=== PATIENT | female | born 1990 | race African-American/Black ===

== ENCOUNTER 2023-11-07 10:40 | Emergency (ER) | payer OTHER, SELFPAY ==
[2023-11-07 10:44] VITALS: BP 187/122
[2023-11-07 11:47] VITALS: BP 167/116
--- NOTE | 2023-11-07 11:51 | ED.GENMED ---
History of Present Illness
General
Chief Complaint: Back Pain
Source: patient
Exam Limitations: none
Time Seen by Provider: 11/07/23 11:06
Nursing documentation reviewed up to this point in time: agreed with
History of Present Illness
History of Present Illness:
Patient is a 33-year-old female who presents to the ER for evaluation. She reports she was applying to her job at an [employer] and decided to come to the ER for evaluation of back pain and wanted to get her bp checked. She reports she has
had back pain for 4 months. 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 She denies any injury but reports when she lifts at work or bends over it worsens her pain. She has been taking Tylenol. She denies any
injury. She denies any radiation of pain. She denies any urinary frequency urgency or dysuria. Denies any fever or chills. Denies any bowel or bladder incontinence denies any numbness tingling weakness
In addition she wanted to get her blood pressure checked because at work yesterday her blood pressure was high. It was taken by a nurse. She denies any headache she denies any blurry vision chest pain shortness of breath nausea vomiting. She
reports she has had high blood pressure since her child was born and she is now 2. She has a family doctor has not been able to get a hold of them and has never had this evaluated or been prescribed medication.
During my exam patient however reports she needs to leave now because she needs to pickers material handlers her daughter.
Review of Systems
Review of Systems
Allergies reviewed?: Yes
All Other Systems: ROS reviewed and negative except as documented in HPI and ROS
Constitutional: Reports no symptoms; Denies fever
EENT: Reports other (No visual complaints)
Respiratory: Reports no symptoms; Denies cough or trouble breathing
Cardiac: Reports no symptoms
ABD/GI: Reports no symptoms
: Reports no symptoms; Denies flank pain, urgency or discharge
Musculoskeletal: Reports back pain (Low back pain)
Skin: Reports no symptoms
Neurological: Reports no symptoms; Denies dizzy or headache
Hematologic/Lymphatic: Reports no symptoms
Psychiatric: Reports no symptoms
Phy Exam
General Physical Exam
General Presentation: no apparent distress
General age: appears stated age
General Skin: warm and dry
General Mental: alert
General Hydration: appears well hydrated
Eye Exam
Eye Exam: PERRL and EOMI
Eye Exam General: PERRL: bilateral and EOM intact: bilateral
Pupil Exam: Bilateral: round and reactive
Cardiovascular Exam
Cardiovascular Exam: regular rate/rhythm, no edema, no murmur and normal peripheral pulses
Pulmonary Exam
Pulmonary Exam: lungs clear and no respiratory distress
Neurological Exam
Neurological Exam: alert, oriented x3, no motor deficits, no sensory deficits and other (Negative straight leg raise bilaterally; normal dorsiflexion plantarflexion normal distal sensation bilaterally)
Musculoskeletal Exam
Musculoskeletal Exam: full ROM and other (Normal inspection to back, mild tenderness to bilateral paralumbar region full range of motion)
Skin Exam
Skin Exam: normal color and warm/dry
Psychiatric Exam
Psychiatric Exam: normal mood/affect
Course
Vital Signs
Initial and Last Documented VS:
Initial Vital Signs
Temp Pulse Resp BP Pulse Ox
98.9 F 84 16 187/122 98
11/07/23 10:44 11/07/23 10:44 11/07/23 10:44 11/07/23 10:44 11/07/23 10:44
Last Documented Vital Signs
Temp Pulse Resp BP Pulse Ox
98.9 F 84 16 167/116 98
11/07/23 10:44 11/07/23 10:44 11/07/23 10:44 11/07/23 11:47 11/07/23 10:44
MDM/Problems Addressed
Differential Diagnosis Includes:
Not limited to lumbar sprain strain elevated blood pressure
MDM/Problems Addressed:
Patient is a 33-year-old female who presented to the ER. She was applying for a position at [employer] here at [place] and decided to come to the ER for evaluation of back pain and wanted to get her blood pressure checked. She reports
her blood pressure was taken at work yesterday and it was high. She however does report that has been high for the past 4 years since delivering her daughter who is now 4. She has no complaints associated with elevated blood pressure denies any
headache blurry vision chest pain shortness of breath. She is in no acute distress and reports that she simply came to get her blood pressure checked and have her back pain evaluated since she was already interviewing for a local job here at the
[place] documented [place].
Patient presents awake alert no acute distress back pain likely muscular patient does a lot of lifting she currently works as a instructor of nursing. She has no neurological deficits no complaints of fever chills or UTI symptoms. Would recommend
Tylenol. likely muscular back pain. She denies trauma.
In addition regarding patient's elevated blood pressure. She has chronic elevated blood pressure however I did recommend to have her labs checked here in the ER since she is never had this done along with ekg. She immediately upon my entering
the room stated that she had to go and pickers material handlers her daughter at daycare and she needs to leave. Her blood pressure is elevated here however she is nontoxic. I did have a conversation with patient regarding the importance of having her blood
pressure evaluated and treated as this does cause chronic kidney disease as well as other conditions. She was given the number to the local family practice residency clinic here she tells me however that she is going to go to the ER closest to her
house after she picks up her daughter or find a family doctor.
Chronic conditions affecting care:
elevated blood pressure
*Pulse Oximetry
Patient hypoxic: no
*Critical Care Note
Total Time (30-74mins, 75-104mins- exclusive of procedures): Not Applicable
ED Attending Note
-
Portions of this chart may have been created with voice recognition software.� Occasional wrong word or��sound alike� substitutions may have occurred due to the inherent limitations of voice recognition software.
Discharge Plan
Departure
Patient Disposition: Home (Routine Discharge)
Date of Disposition: 11/07/23
Time of Disposition: 12:23
Patient with high blood pressure during this ER visit?: Yes
Condition: Fair
Covid-19: Not Applicable
Discharge Problem:
elevated blood pressure, Low back pain
Instructions: Low Back Pain (DC), BLOOD PRESSURE
Prescriptions:
New
lidocaine 5 % adhesive patch,medicated
1 patch topical DAILY Qty: 15 0RF
Rx Instructions:
remove after 12 hrs
Referrals:
[facility] [Provider Group]
[facility] [Outside]
Stand Alone Forms: Return to Work
Activity Restrictions/Additional Instructions:
As discussed you may take Tylenol for back pain. Also prescription for lidocaine patch was given to you. You may apply to affected area daily.
As discussed your blood pressure was elevated and you need to follow-up with your family doctor or clinic for reevaluation and treatment of your blood pressure. Return for any worsening of symptoms of chest pain shortness of breath headache
visual changes or any further concerns.
You were given information for local clinic here at [place].
Interventions
Interventions:
*Risk Screen - Suicide Last Done: 11/07/23 10:44
*General Assessment Last Done: 11/07/23 10:44
*Neglect/Abuse Screening Last Done: 11/07/23 10:44
*Nursing Disposition Last Done: 11/07/23 12:34
ED-Musculoskeletal Assessment Last Done: 11/07/23 12:34
Discharge Date and Time
Print Language: YAKUT
[2023-11-07 12:32] VITALS: BP 164/110
== END 2023-11-07 12:36 | disposition home or self-care (01) ==
LOC: EMR 10:40
PROVIDERS: EMERGENCY PHYSICIAN Emergency Medicine
DX: R03.0 Elevated blood-pressure reading, without diagnosis of hypertension (principal); M54.50 Low back pain, unspecified
CPT/HCPCS: 99282